=== PATIENT | male | born 1960 | race Hispanic/Latino ===

== ENCOUNTER 2016-04-06 08:56 | Emergency (ER) | payer OTHER ==
[~2016-04-06] VITALS: Ht 182.9 cm; Wt 86.2 kg
[2016-04-06 09:06] VITALS: BP 150/107
[2016-04-06] MEDS ORDERED: PERCOCET 5-3251 EACH PO (09:15)
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
== END 2016-04-06 09:32 ==
LOC: ERH 08:56
DX: G89.29 Other chronic pain (principal); M54.5 Low back pain